=== PATIENT | female | born 1965 | race American Indian/Alaskan Native ===

== ENCOUNTER 2017-12-22 00:32 | Emergency (ER) | payer MEDICAID, OTHER ==
[2017-12-22 02:33] LABS: Basophils # (Auto) 0.1 K/mm3 (0.0-0.1); Basophils % (Auto) 0.9 % (0.0-1.8); Eosinophils # (Auto) 0.6 K/mm3 (0.0-0.4); Hematocrit 38.3 % (30.3-42.9); Lymphocytes # (Auto) 1.5 K/mm3 (1.2-5.4); Lymphocytes % (Auto) 27.1 % (13.4-35.0); Mean Corpuscular HGB Conc 34 % (30-34); Mean Corpuscular Hemoglobin 31 pg (28-32); Mean Corpuscular Volume 91 fl (79-97); Monocytes # (Auto) 0.4 K/mm3 (0.0-0.8); Monocytes % (Auto) 7.7 % (0.0-7.3); Platelet Count 178 K/mm3 (140-440); Red Blood Count 4.22 M/mm3 (3.65-5.03); Red Cell Distribution Width 14.3 % (13.2-15.2)
[2017-12-22 03:02] LABS: BUN/Creatinine Ratio 12; Blood Urea Nitrogen 6 mg/dL (7-17); Calcium 9.4 mg/dL (8.4-10.2); Hemolysis Index 5
[2017-12-22] MEDS ORDERED: TORADOL IV ONE (03:08)
[2017-12-22 03:32] VITALS: BP 134/75
--- NOTE | 2017-12-22 04:38 | Emergency Department Report ---
ED General Adult HPI - General Chief complaint: Chest Pain Stated complaint: LT SHOULDER PAIN Time Seen by Provider: 12/22/17 02:57 Source: patient Mode of arrival: Stretcher Limitations: Physical Limitation - History of Present Illness Initial comments: Patient is a 52-year-old female who is presenting to the emergency department with 2 weeks of left shoulder pain. Patient states that the pain is in the left shoulder and neck as radiating to the left chest. Patient states his going on approximately 2 weeks. Patient states it was slightly worse today which prompted her to come to the hospital. Patient denies any exertional chest pain or shortness of breath fevers chills nausea vomiting or diaphoresis at this time. Patient states the pain is a 4 out of 10 in severity. It is aching pain. Patient also states that her left elbow has been hurting as well. Is been no trauma to the elbow has been no swelling redness or decreased ability to move. Severity scale (0 -10): 9 - Related Data Previous Rx's Medication Instructions Recorded Last Taken Type Ibuprofen [Motrin] 600 mg PO Q8H PRN #20 tablet 12/22/17 Unknown Rx traMADol [Ultram] 50 mg PO Q6HR PRN #12 tablet 12/22/17 Unknown Rx Allergies Allergy/AdvReac Type Severity Reaction Status Date / Time aspirin Allergy Vomiting Verified 12/22/17 01:56 ED Review of Systems ROS: Stated complaint: LT SHOULDER PAIN Other details as noted in HPI Comment: All other systems reviewed and negative ED Past Medical Hx - Past Medical History Hx GERD: Yes Hx of Cancer: Yes (Tongue) Hx Arthritis: Yes Hx Headaches / Migraines: Yes Additional medical history: Hypotensive - Surgical History Hx Appendectomy: Yes Additional Surgical History: Left Shoulder, - Social History Smoking Status: Never Smoker Substance Use Type: None - Medications Home Medications: Home Medications Medication Instructions Recorded Confirmed Last Taken Type Ibuprofen [Motrin] 600 mg PO Q8H PRN #20 tablet 12/22/17 Unknown Rx traMADol [Ultram] 50 mg PO Q6HR PRN #12 tablet 12/22/17 Unknown Rx ED Physical Exam - General Limitations: Physical Limitation General appearance: alert, in no apparent distress - Head Head exam: Present: atraumatic, normocephalic - Eye Eye exam: Present: normal appearance - ENT ENT exam: Present: mucous membranes moist - Neck Neck exam: Present: normal inspection - Respiratory Respiratory exam: Present: normal lung sounds bilaterally. Absent: respiratory distress, wheezes, rales, rhonchi - Cardiovascular Cardiovascular Exam: Present: regular rate, normal rhythm, normal heart sounds. Absent: systolic murmur, diastolic murmur, rubs, gallop - GI/Abdominal GI/Abdominal exam: Present: soft, normal bowel sounds. Absent: distended, tenderness, guarding, rebound - Extremities Exam Extremities exam: Present: normal inspection - Back Exam Back exam: Present: normal inspection - Neurological Exam Neurological exam: Present: alert, oriented X3 - Psychiatric Psychiatric exam: Present: normal affect, normal mood - Skin Skin exam: Present: warm, dry, intact, normal color. Absent: rash ED Course Vital Signs 12/22/17 12/22/17 01:49 03:31 Temperature 98.5 F 98 F Pulse Rate 88 84 Respiratory 18 19 Rate Blood Pressure 132/76 Blood Pressure 134/75 [Left] O2 Sat by Pulse 100 100 Oximetry ED Medical Decision Making - Lab Data Result diagrams: 12/22/17 02:08 12/22/17 02:08 - EKG Data -: EKG Interpreted by Fl EKG shows normal: sinus rhythm, axis, intervals, QRS complexes, ST-T waves Rate: normal - Radiology Data Radiology results: report reviewed Chest x-ray shows no acute process - Medical Decision Making Patient is a 52-year-old asthmatic female presented with chest discomfort as well as left shoulder and left elbow pain. Patient most likely has some arthralgias secondary to degenerative joint disease and will be discharged home. Patient's troponin was negative vital signs are normal limits. Critical care attestation.: If time is entered above; I have spent that time in minutes in the direct care of this critically ill patient, excluding procedure time. ED Disposition Clinical Impression: Arthralgia Qualifiers: Joint pain location: shoulder Laterality: left Qualified Code(s): M25.512 - Pain in left shoulder Disposition: -01 TO HOME OR SELFCARE Is pt being admited?: No Does the pt Need Aspirin: No Condition: Stable Prescriptions: Ibuprofen [Motrin] 600 mg PO Q8H PRN #20 tablet PRN Reason: Pain traMADol [Ultram] 50 mg PO Q6HR PRN #12 tablet PRN Reason: Pain Referrals: CORNELL JOSE MD [Primary Care Provider] - 3-5 Days
--- NOTE | 2017-12-22 06:58 | XRay Report ---
FINAL REPORT EXAM: XR CHEST 1V AP HISTORY: chest pain TECHNIQUE: AP portable view(s) of the chest obtained. PRIORS: None. FINDINGS: No mediastinal shift. Cardiac silhouette is not enlarged. No pneumothorax, effusion, or focal pulmonary opacity identified. No acute skeletal findings. IMPRESSION: No acute pulmonary finding identified.
== END 2017-12-22 04:55 | disposition home or self-care (01) ==
LOC: ED 00:32
DX: M25.512 Pain in left shoulder (principal); K21.9 Gastro-esophageal reflux disease without esophagitis; I95.9 Hypotension, unspecified; Z90.49 Acquired absence of other specified parts of digestive tract; Z88.6 Allergy status to analgesic agent
CPT/HCPCS: 36415; 71045; 80048; 84484; 84703; 85025; 85379; 93005; 93010; 96374; 99284; J1885

== ENCOUNTER 2020-07-06 09:34 | Emergency (ER) | payer MEDICAID, OTHER ==
[2020-07-06 10:09] VITALS: BP 153/81
--- NOTE | 2020-07-06 13:13 | Emergency Department Report ---
Chief Complaint: Extremity Problem,Nontraumatic Stated Complaint: PAIN LT ARM/HAND/FINGERS Time Seen by Provider: 07/06/20 12:14 - HPI History of Present Illness: Patient is a 29-year-old female who presents emergency room with complaints of left pain and left shoulder pain for a month. She states that she also feels a burning sensation in her left fingers. She states that she went to [place] earlier in the month and had a x-ray of her left shoulder which she reports was normal. She states that it also feels like she has some swelling and has a ring on her left ring finger which she states she cannot get off. She denies any fall or injury. It appears patient has been to the emergency department in 2018 for similar symptoms. She has not followed up with a primary care doctor or an orthopedic. Notes, fever, vomiting, diarrhea, any other symptoms. She has a past medical history of fibromyalgia and GERD, arthritis. Allergy to aspirin. Vitals are normal On exam: Non toxic appearing, no acute distress atraumatic, normocephalic normal appearance of the eyes, EOMI, no periorbital edema or ecchymosis moist mucus membranes no respiratory distress, no accessory muscle use No bony tenderness palpation of the left upper extremity, no deformity, no incre ased warmth, no erythema, no skin changes, no significant edema, full range of motion of the left upper extremity without difficulty, neurovascularly intact, there is a ring present to the left ring finger A&O x4, no focal neuro deficit skin is warm, dry, intact Able to easily remove left ring finger with soap and water without any complications, no abrasion, no ecchymosis, no bleeding Patient is presenting for chronic joint pain She has no clinical signs of septic joint, no signs of gout, she has strong pulses, no signs of DVT Patient will be referred to primary care physician and orthopedic Discussed supportive care and symptomatic treatment with patient Discussed strict return precautions Medical screening examination performed and there is no threat to life or limb at this time - Exam Vital Signs: Vital Signs 07/06/20 10:08 Temperature 97.8 F Pulse Rate 86 Respiratory 20 Rate Blood Pressure 153/81 [Right] O2 Sat by Pulse 100 Oximetry MSE screening note: Focused history and physical exam performed. ED Disposition for MSE Clinical Impression: Left hand pain, Paresthesia Left shoulder pain Qualifiers: Chronicity: acute Qualified Code(s): M25.512 - Pain in left shoulder Disposition: MED SCREENING EXAM-LEFT Is pt being admited?: No Does the pt Need Aspirin: No Condition: Stable Instructions: Arthralgia (ED), Paresthesia (ED) Additional Instructions: May alternate Tylenol or ibuprofen as needed for discomfort. May use ice pack, soak in Epson salt. Follow-up with a primary care doctor. Follow-up with orthopedic doctor. Return to emergency room for any new or worsening symptoms. Referrals: VANDANA NICHOLE MD [Staff Physician] - 3-5 Days [facility] [Provider Group] - 3-5 Days [facility] [Provider Group] - 3-5 Days LOKI HEATH MD [Staff Physician] - 3-5 Days Time of Disposition: 13:13 Print Language: SETSWANA
== END 2020-07-06 13:29 | disposition left against medical advice (07) ==
LOC: ED 09:34
DX: M79.602 Pain in left arm (principal); Z53.21 Procedure and treatment not carried out due to patient leaving prior to being seen by health care provider